=== PATIENT | male | born 1975 | race Caucasian/White ===

== ENCOUNTER 2017-01-25 20:21 | Emergency (ER) | payer BC ==
[~2017-01-25] VITALS: Ht 182.9 cm; Wt 87.9 kg
[2017-01-26] MEDS ORDERED: NAPROSYN500 MG PO (00:07)
[2017-01-26] MEDS ORDERED: NORCO 5/3251 TABLET PO (00:07)
[2017-01-26 00:13] VITALS: BP 147/95
== END 2017-01-26 00:14 | disposition home or self-care (01) ==
LOC: EME 20:21
DX: S43.401A Unspecified sprain of right shoulder joint, initial encounter (principal); S40.011A Contusion of right shoulder, initial encounter; W19.XXXA Unspecified fall, initial encounter; Y93.64 Activity, baseball
CPT/HCPCS: 71020; 73030; 99281; 99284